=== PATIENT | female | born 1975 | race Caucasian/White ===

== ENCOUNTER 2022-11-12 05:12 | Emergency (ER) | payer BC ==
[2022-11-12] MEDS ORDERED: Sodium Chloride 0.9% 1,000 ML IV ONE (05:27)
[2022-11-12] MEDS ORDERED: Propofol 200 MG/20 ML SDV IVPUSH ONE (05:30)
[2022-11-12] MEDS ORDERED: ceFAZolin 2 GM in Sodium Chloride 0.9% 50 ML IV ONE (05:30)
[2022-11-12] MEDS ORDERED: Lidocaine 1% with EPINEPHrine 1:100,000 20 ML MDV ONE (05:48)
[2022-11-12] MEDS ORDERED: Sulfamethoxazole/Trimethoprim 800-160 MG Tab PO ONE (05:56)
[2022-11-12] MEDS ORDERED: Lidocaine 1% with EPINEPHrine 1:100,000 20 ML MDV INJECT STA (06:02)
[2022-11-12] MEDS: Ketamine 500 mg/10 ML MDV IM ONE ×2 (06:02→06:04)
[2022-11-12 06:14] LABS: CARBON DIOXIDE,CO2 25.4 mmol/L (21.0-32.0); POTASSIUM,K 3.6 mmol/L (3.5-5.1)
== END 2022-11-12 06:39 | disposition home or self-care (01) ==
LOC: MW.ED 05:12
DX: L02.411 Cutaneous abscess of right axilla (principal); L03.111 Cellulitis of right axilla; Z88.8 Allergy status to other drugs, medicaments and biological substances
CPT/HCPCS: 10061; 36415; 80048; 84703; 85025; 87040; 87070; 87077; 87186; 87205; 96365; 99283; A9270; J0690; J2704; J3490; J7030; 99284